=== PATIENT | female | born 1995 | race African-American/Black ===

== ENCOUNTER 2019-11-07 04:41 | Emergency (ER) | payer MEDICARE, MEDICAID ==
[~2019-11-07] VITALS: Ht 162.6 cm; Wt 80.0 kg
[~2019-11-07 04:41] MED LIST: OXYC-302 PO; QUET25TA5 PO
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
--- NOTE | 2019-11-07 05:06 | NUR ---
SAMIRA IN ROOM TAKING REPORT FROM PATIENT
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
--- NOTE | 2019-11-07 05:23 | NUR ---
PATIENT TO IMAGING
[2019-11-07 05:28] LABS: MEAN CORPUSCULAR HEMOGLOBIN 32.1 pg (27.0-34.8); MEAN CORPUSCULAR HGB CONC 33.3 g/dL (32.4-35.8); MEAN CORPUSCULAR VOLUME 96.4 fL (80-100); MEAN PLATELET VOLUME 7.2 fL (7.4-10.4); PLATELET COUNT 470 x10^3/uL (130-400); RED BLOOD COUNT 4.25 x10^6/uL (3.82-5.3); RED CELL DISTRIBUTION WIDTH 15.4 % (9.6-15.2)
[2019-11-07] MEDS ORDERED: SODIUM CHLORIDE FLUSH 10ML SYR IVF ONE (05:30)
[2019-11-07] MEDS ORDERED: DIPH,PERTUSS(ACELL),TET VAC/PF 0.5 ML IM-VACC ONE (05:30)
[2019-11-07 05:39] LABS: ALBUMIN 3.5 g/dL (3.4-5.0); ANION GAP 7 mmol/L (5-15); CALCIUM 8.5 mg/dL (8.5-10.1); CHLORIDE 109 mmol/L (98-107); CREATININE 1.33 mg/dL (0.55-1.02)
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
--- NOTE | 2019-11-07 06:03 | NUR ---
PATIENT EDUCATED NEED FOR URINE SAMPLE, PATIENT STATES SHE IS UNABLE TO GO AT THIS TIME
[2019-11-07 06:11] LABS: MD YES
[2019-11-07 06:14] LABS: <PLATELET ESTIMATE> INCREASED; <PLT MORPHOLOGY> NORMAL PLT MORPH; <RBC MORPHOLOGY> NORMAL; LYMPH#(MANUAL) 1.91 x10^3/uL (1-3.4); LYMPHS% (MANUAL) 8 % (22-44); MONOS% (MANUAL) 5 % (2-9); SEG#(MANUAL) 20.79 x10^3/uL (1.8-6.8); SEGS% (MANUAL) 87 % (42-75)
[2019-11-07 06:36] VITALS: BP 123/76
--- NOTE | 2019-11-07 06:49 | NUR ---
REPORT GIVEN TO FREDDY ARNDT. PLAN OF CARE DISCUSSED
--- NOTE | 2019-11-07 07:09 | NUR ---
PT RESTING IN BED, REFUSING URINE SAMPLE COLLECTION AT THIS TIME.
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
--- NOTE | 2019-11-07 07:40 | NUR ---
RANDI HARMON UPDATED THAT PATIENT REQUESTING TO TALK TO HER. PATIENT IN RESTROOM AT THIS TIME.
--- NOTE | 2019-11-07 07:57 | NUR ---
PATIENT BACK IN ROOM, WHEN DISCHARGE INSTRUCTIONS DISCUSSED PATIENT BECAME AGITATED AND THREATEND TO "BEAT" RN. FELTING MACHINE OPERATOR HELPER, SECURITY, AND RANDI HARMON NOTIFIED.
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
== END 2019-11-07 08:30 | disposition left against medical advice (07) ==
LOC: ED 06:06
DX: T76.21XA Adult sexual abuse, suspected, initial encounter (principal); S13.4XXA Sprain of ligaments of cervical spine, initial encounter; S23.3XXA Sprain of ligaments of thoracic spine, initial encounter; S33.5XXA Sprain of ligaments of lumbar spine, initial encounter; S93.402A Sprain of unspecified ligament of left ankle, initial encounter; S93.401A Sprain of unspecified ligament of right ankle, initial encounter; Y93.89 Activity, other specified; Y92.009 Unspecified place in unspecified non-institutional (private) residence as the place of occurrence of the external cause; Y99.8 Other external cause status
CPT/HCPCS: 36415; 71046; 72072; 72110; 72125; 80048; 82040; 85025; 99285

== ENCOUNTER 2021-01-09 21:27 | Emergency (ER) | payer MEDICARE, MEDICAID ==
[~2021-01-09] VITALS: Ht 162.6 cm; Wt 69.3 kg
[~2021-01-09 21:27] MED LIST changes: -OXYC-302 PO; +OXYC1TAB14 PO
[2021-01-09 21:29] VITALS: BP 114/74
[2021-01-10] MEDS ORDERED: IBUPROFEN 600 MG TABLET ONE (00:09)
--- NOTE | 2021-01-10 00:11 | NUR ---
Patient/Caregiver given discharge instructions and they have confirmed that they understand the instructions. Patient ambulatory with steady gait.
[2021-01-10] MEDS ORDERED: IBUPROFEN 600 MG TABLET PO ONE (00:30)
== END 2021-01-10 00:13 | disposition home or self-care (01) ==
LOC: ED 21:57
DX: M79.10 Myalgia, unspecified site (principal); Z72.9 Problem related to lifestyle, unspecified; Z59.0 Homelessness
CPT/HCPCS: 99282